=== PATIENT | male | born 1950 | race Caucasian/White ===

== ENCOUNTER 2019-08-23 14:05 | Emergency (ER) | payer OTHER ==
[2019-08-23] MEDS ORDERED: SODIUM CHLORIDE 0.9% 1,000 ML IV STA (14:35)
[2019-08-23] MEDS ORDERED: IPRATROPIUM-ALBUTEROL 3 ML NEB INHALATION STA (14:57)
[2019-08-23] MEDS ORDERED: KETOROLAC 30 MG/ML 1 ML VIAL IVP STA (14:57)
--- NOTE | 2019-08-23 15:02 | ED ---
Dizziness HPI - General Chief Complaint: Dizziness Stated Complaint: Dizziness Time Seen by Provider: 08/23/19 14:34 Source: patient, RN notes reviewed Mode of arrival: wheelchair Limitations: no limitations - History of Present Illness Initial Comments: This is a 68-year-old male who states he just recently moved to the area from [facility] who states he does not have any of his medications and he comes in complaining of dizziness right-sided headache from chronic neck pain. He states he also somewhat short of breath. He states he does use inhalers but does not have any of his medication. He denies any overt fevers chills nausea vomiting sweats no cough or phlegm production. No overt chest pain no palpitations no other modifying factors MD Complaint: dizziness, other - Related Data Previous Rx's Medication Instructions Recorded Albuterol Inhaler [Ventolin Hfa 2 puff INHALATION RT-QID PRN 30 08/23/19 Inhaler] Days #1 puff Tamsulosin HCl [Flomax] 0.4 mg PO DAILY #30 cap 08/23/19 amLODIPine [Norvasc] 5 mg PO DAILY #30 tab 08/23/19 Allergies Allergy/AdvReac Type Severity Reaction Status Date / Time trazodone Allergy Confusion Verified 08/23/19 14:18 Review of Systems ROS Statement: Those systems with pertinent positive or pertinent negative responses have been documented in the HPI. ROS Other: All systems not noted in ROS Statement are negative. Past Medical History Past Medical History: COPD, Hyperlipidemia, Hypertension, Myocardial Infarction ([place]) History of Any Multi-Drug Resistant Organisms: None Reported Past Surgical History: Orthopedic Surgery Past Psychological History: No Psychological Hx Reported Smoking Status: Current every day smoker Past Alcohol Use History: Daily Past Drug Use History: None Reported General Exam - General Exam Comments Initial Comments: This is a well-developed well-nourished awake alert oriented 3 male Limitations: no limitations General appearance: alert, in no apparent distress Head exam: Present: atraumatic, normocephalic, normal inspection Eye exam: Present: normal appearance, PERRL, EOMI. Absent: scleral icterus, conjunctival injection, periorbital swelling ENT exam: Present: normal exam, mucous membranes moist Neck exam: Present: normal inspection, tenderness (It is palpation on the), full ROM, other (No stridor JVD or bruits). Absent: meningismus, lymphadenopathy Respiratory exam: Present: wheezes, decreased breath sounds. Absent: respiratory distress, rales, rhonchi, stridor Cardiovascular Exam: Present: regular rate, normal rhythm, normal heart sounds. Absent: systolic murmur, diastolic murmur, rubs, gallop, clicks GI/Abdominal exam: Present: soft, normal bowel sounds. Absent: distended, tenderness, guarding, rebound, rigid Extremities exam: Present: full ROM, normal capillary refill, pedal edema (Trace edema). Absent: tenderness, joint swelling, calf tenderness Back exam: Present: normal inspection Neurological exam: Present: alert, oriented X3, CN II-XII intact Psychiatric exam: Present: normal affect, normal mood Skin exam: Present: warm, dry, intact, normal color. Absent: rash Course Vital Signs 08/23/19 08/23/19 08/23/19 14:13 14:46 15:17 Temperature 98.0 F 98.1 F Pulse Rate 74 61 65 Respiratory 18 18 16 Rate Blood Pressure 161/83 144/92 O2 Sat by Pulse 97 97 Oximetry 08/23/19 15:24 Temperature Pulse Rate 68 Respiratory 18 Rate Blood Pressure O2 Sat by Pulse Oximetry EKG Findings - EKG Results: EKG: interpreted by ERMD, sinus rhythm (Sinus rhythm a 64. 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 He feels back to normal. He will be discharged I did talk to him regarding his medications he is on amlodipine he believes 5 or 10 mg also albuterol inhaler and Flomax he will be given a one-month supply the medication. - Lab Data Result diagrams: 08/23/19 14:35 08/23/19 14:35 Lab Results 08/23/19 08/23/19 08/23/19 Range/Units 14:35 14:35 14:35 WBC 8.6 (3.8-10.6) k/uL RBC 5.43 (4.30-5.90) m/uL Hgb 16.6 (13.0-17.5) gm/dL Hct 49.3 (39.0-53.0) % MCV 90.7 (80.0-100.0) fL MCH 30.5 (25.0-35.0) pg MCHC 33.6 (31.0-37.0) g/dL RDW 13.7 (11.5-15.5) % Plt Count 282 (150-450) k/uL Neutrophils % 68 % Lymphocytes % 19 % Monocytes % 6 % Eosinophils % 4 % Basophils % 1 % Neutrophils # 5.8 (1.3-7.7) k/uL Lymphocytes # 1.7 (1.0-4.8) k/uL Monocytes # 0.5 (0-1.0) k/uL Eosinophils # 0.3 (0-0.7) k/uL Basophils # 0.0 (0-0.2) k/uL Sodium 139 (137-145) mmol/L Potassium 4.4 (3.5-5.1) mmol/L Chloride 105 (98-107) mmol/L Carbon Dioxide 28 (22-30) mmol/L Anion Gap 6 mmol/L BUN 15 (9-20) mg/dL Creatinine 0.76 (0.66-1.25) mg/dL Est GFR (CKD-EPI)AfAm >90 (>60 ml/min/1.73 sqM) Est GFR (CKD-EPI)NonAf >90 (>60 ml/min/1.73 sqM) Glucose 105 H (74-99) mg/dL Calcium 9.5 (8.4-10.2) mg/dL Magnesium 2.3 (1.6-2.3) mg/dL Total Bilirubin 0.4 (0.2-1.3) mg/dL AST 25 (17-59) U/L ALT 8 (4-49) U/L Alkaline Phosphatase 81 (38-126) U/L Troponin I <0.012 (0.000-0.034) ng/mL Total Protein 7.1 (6.3-8.2) g/dL Albumin 4.1 (3.5-5.0) g/dL - Radiology Data Radiology results: report reviewed (I did review the imaging and report no acute findings.), image reviewed Disposition Clinical Impression: COPD (chronic obstructive pulmonary disease), Medication refill, Hypertension Disposition: HOME SELF-CARE Condition: Good Instructions (If sedation given, give patient instructions): COPD (Chronic Obstructive Pulmonary Disease) (ED) Additional Instructions: Medication prescriptions sent to your preferred [facility] pharmacy Prescriptions: Tamsulosin HCl [Flomax] 0.4 mg PO DAILY #30 cap amLODIPine [Norvasc] 5 mg PO DAILY #30 tab Albuterol Inhaler [Ventolin Hfa Inhaler] 2 puff INHALATION RT-QID PRN 30 Days #1 puff PRN Reason: Dyspnea Is patient prescribed a controlled substance at d/c from ED?: No Referrals: Nonstaff,Physician [REFERRING] - 1-2 days
[2019-08-23 15:25] VITALS: RESP 18
[2019-08-23 15:30] LABS: Basophils % (A) 1 %; Eosinophils # (A) 0.3 k/uL (0-0.7); Eosinophils % (A) 4 %; HCT 49.3 % (39.0-53.0); HGB 16.6 gm/dL (13.0-17.5); Lymphocytes # (A) 1.7 k/uL (1.0-4.8); Lymphocytes % (A) 19 %; MCH 30.5 pg (25.0-35.0); MCHC 33.6 g/dL (31.0-37.0); MCV 90.7 fL (80.0-100.0); Mean Platelet Volume 7.1; Monocytes # (A) 0.5 k/uL (0-1.0); Monocytes % (A) 6 %; Neutrophils # (A) 5.8 k/uL (1.3-7.7); Neutrophils % (A) 68 %; Platelet Count 282 k/uL (150-450); RBC 5.43 m/uL (4.30-5.90); RDW 13.7 % (11.5-15.5); WBC 8.6 k/uL (3.8-10.6)
[2019-08-23 15:43] LABS: ALT 8 U/L (4-49); AST 25 U/L (17-59); African American GFR (CKD) >90 (>60 ml/min/1.73 sqM); Albumin 4.1 g/dL (3.5-5.0); Alkaline Phosphatase 81 U/L (38-126); Anion Gap 6 mmol/L; Blood Urea Nitrogen 15 mg/dL (9-20); Calcium 9.5 mg/dL (8.4-10.2); Carbon Dioxide 28 mmol/L (22-30); Chloride 105 mmol/L (98-107); Glucose 105 mg/dL (74-99); Magnesium 2.3 mg/dL (1.6-2.3); Non-African American GFR(CKD) >90 (>60 ml/min/1.73 sqM); Potassium 4.4 mmol/L (3.5-5.1); Sodium 139 mmol/L (137-145); Total Bilirubin 0.4 mg/dL (0.2-1.3); Total Protein 7.1 g/dL (6.3-8.2)
--- NOTE | 2019-08-23 15:45 | XR ---
EXAMINATION TYPE: XR chest 2V DATE OF EXAM: 08/23/2019 COMPARISON: None INDICATION: Dizziness TECHNIQUE: Frontal and lateral views of the chest are obtained. FINDINGS: The heart size is normal. The pulmonary vasculature is normal. The lungs are clear. IMPRESSION: 1. No acute pulmonary process.
[2019-08-23 16:42] VITALS: BP 150/74; PULSE 70; TEMP 98
== END 2019-08-23 16:32 | disposition home or self-care (01) ==
LOC: EC 14:05
DX: I10 Essential (primary) hypertension (principal); J44.9 Chronic obstructive pulmonary disease, unspecified; Z76.0 Encounter for issue of repeat prescription; I25.2 Old myocardial infarction; F17.200 Nicotine dependence, unspecified, uncomplicated; Z88.8 Allergy status to other drugs, medicaments and biological substances
CPT/HCPCS: 36415; 94640; 93005; 80053; 83735; 84484; 85025; 71046; 99284; 96374; 96361; J1885

== ENCOUNTER 2019-11-24 12:17 | Emergency (ER) | payer OTHER ==
[2019-11-24 13:14] LABS: Appearance,Urine Clear (Clear); Bilirubin,Urine Negative (Negative); Blood,Urine Negative (Negative); Color,Urine Colorless; Glucose,Urine (UA) Negative (Negative); Ketones,Urine Negative (Negative); Leukocyte Esterase,Urine Negative (Negative); Nitrite,Urine Negative (Negative); PH, Urine 5.5 (5.0-8.0); Protein,Urine Negative (Negative); Specific Gravity,Urine 1.002 (1.001-1.035); Urobilinogen,Urine <2.0 mg/dL (<2.0)
[2019-11-24] MEDS ORDERED: amLODIPine 5 MG TAB PO STA (13:39)
[2019-11-24 13:46] VITALS: RESP 18
[2019-11-24 13:46] LABS: Amphetamine Screen,Urine Not Detected (NotDetected); Barbiturate Screen,Urine Not Detected (NotDetected); Benzodiazepines Screen,Urine Not Detected (NotDetected); Cocaine Screen,Urine Not Detected (NotDetected); Methadone Screen, Urine Not Detected (NotDetected); Opiate Screen,Urine Not Detected (NotDetected); Oxycodone Screen, Urine Not Detected (NotDetected); Phencyclidine Screen,Urine Not Detected (NotDetected); Tricyclic Antidepressant,Urine Not Detected (NotDetected); Urn Cannabinoid Scrn Not Detected (NotDetected)
--- NOTE | 2019-11-24 14:17 | ED ---
Psych HPI - General Source: patient Mode of arrival: wheelchair <Maira Mcguire - Last Filed: 11/24/19 14:15> <Victoriano Myrick - Last Filed: 11/24/19 16:27> - General Chief Complaint: Psychiatric Symptoms Stated Complaint: Suicidal Time Seen by Provider: 11/24/19 12:31 - History of Present Illness Initial Comments: 69yo male presenting to the ER today for cc for suicidal ideation. Patient states that he wants to jump in front of her for itching. Denies attempted suicide. Patient states he did have a few "big beers today. Patient denies any homicide patient denies additional complaints he appears well in good spirits on arrival cooperative. Patient denies any recent fever, chills, shortness of breath, chest pain, back pain, abdominal pain, nausea or vomiting, numbness or tingling, dysuria or hematuria, constipation or diarrhea, headaches or visual changes, or any other complaints.. (Maira Mcguire) - Related Data Previous Rx's Medication Instructions Recorded Albuterol Inhaler [Ventolin Hfa 1 puff INHALATION RT-QID PRN #1 inh 11/24/19 Inhaler] Gabapentin 300 mg PO TID #21 cap 11/24/19 Lisinopril [Prinivil] 10 mg PO DAILY #7 tab 11/24/19 amLODIPine [Norvasc] 10 mg PO DAILY #7 tab 11/24/19 Allergies Allergy/AdvReac Type Severity Reaction Status Date / Time trazodone Allergy Confusion Verified 11/24/19 13:41 Review of Systems ROS Other: All systems not noted in ROS Statement are negative. <Maira Mcguire - Last Filed: 11/24/19 14:15> ROS Other: All systems not noted in ROS Statement are negative. <Victoriano Myrick - Last Filed: 11/24/19 16:27> ROS Statement: Those systems with pertinent positive or pertinent negative responses have been documented in the HPI. Past Medical History Past Medical History: COPD, CVA/TIA, Hyperlipidemia, Hypertension, Myocardial Infarction ([place]) History of Any Multi-Drug Resistant Organisms: None Reported Past Surgical History: Orthopedic Surgery Additional Past Surgical History / Comment(s): lt shoulder Past Psychological History: No Psychological Hx Reported Smoking Status: Current every day smoker Past Alcohol Use History: Daily Past Drug Use History: None Reported <Maira Mcguire Rabia - Last Filed: 11/24/19 14:15> General Exam Limitations: no limitations <Maira Mcguire Rabia - Last Filed: 11/24/19 14:15> - General Exam Comments Initial Comments: General: The patient is awake and alert, in no distress Eye: Pupils are equal, round and reactive to light, extra-ocular movements are intact. No nystagmus. There is normal conjunctiva bilaterally. No signs of icterus. Ears, nose, mouth and throat: There are moist mucous membranes and no oral lesions. Neck: The neck is supple, there is no tenderness or JVD. Cardiovascular: There is a regular rate and rhythm. No murmur, rub or gallop is appreciated. Respiratory: Lungs are clear to auscultation, respirations are non-labored, breath sounds are equal. No wheezes, stridor, rales, or rhonchi. Gastrointestinal: Soft, non-distended, non-tender abdomen without masses or organomegaly noted. There is no rebound or guarding present. Musculoskeletal: Normal ROM, no tenderness. Strength 5/5. Sensation intact. Pulses equal bilaterally 2+. Neurological: A&O x 3. CN II-XII intact grossly, There are no obvious motor or sensory deficits. Coordination appears grossly intact. Speech is normal. Skin: Skin is warm and dry and no rashes. Psychiatric: Cooperative. (Maira Mcguire) Course Vital Signs 11/24/19 11/24/19 11/24/19 12:26 13:45 15:40 Temperature 97.7 F Pulse Rate 62 62 64 Respiratory 20 18 18 Rate Blood Pressure 196/91 162/86 171/82 O2 Sat by Pulse 99 97 96 Oximetry Medical Decision Making <ShaylaAliciaMaira L - Last Filed: 11/24/19 14:15> <Victoriano Myrick - Last Filed: 11/24/19 16:27> - Medical Decision Making 69yo presenting for suicidal ideation. BP elevated, out of medications 5mg amlodipine. Patient sober at 1435 pt case signed out to Dr. Myrick at shift change. Pending EPS evaluatin. (Maira Mcguire) Patient had presented for evaluation of suicidal ideation, intoxication. Patient was medically cleared after sobriety and evaluated by EPS, patient is no longer suicidal. He is willing to sign a safety plan. He is given outpatient referral to [facility]. He is requesting that we refill his medications which she's been unable to get patient to the [place] [facility]. He is currently on albuterol, lisinopril, gabapentin and Norvasc. He is given a one-week supply of these medications. (Victoriano Myrick) - Lab Data Lab Results 11/24/19 Range/Units 12:41 Urine Color Colorless Urine Appearance Clear (Clear) Urine pH 5.5 (5.0-8.0) Ur Specific [place] 1.002 (1.001-1.035) Urine Protein Negative (Negative) Urine Glucose (UA) Negative (Negative) Urine Ketones Negative (Negative) Urine Blood Negative (Negative) Urine Nitrite Negative (Negative) Urine Bilirubin Negative (Negative) Urine Urobilinogen <2.0 (<2.0) mg/dL Ur Leukocyte Esterase Negative (Negative) Urine Opiates Screen Not Detected (NotDetected) Ur Oxycodone Screen Not Detected (NotDetected) Urine Methadone Screen Not Detected (NotDetected) Ur Propoxyphene Screen Not Detected (NotDetected) Ur Barbiturates Screen Not Detected (NotDetected) U Tricyclic Antidepress Not Detected (NotDetected) Ur Phencyclidine Scrn Not Detected (NotDetected) Ur Amphetamines Screen Not Detected (NotDetected) U Methamphetamines Scrn Not Detected (NotDetected) U Benzodiazepines Scrn Not Detected (NotDetected) Urine Cocaine Screen Not Detected (NotDetected) U Marijuana (THC) Screen Not Detected (NotDetected) Disposition <Maira Mcguire - Last Filed: 11/24/19 14:15> Is patient prescribed a controlled substance at d/c from ED?: No Time of Disposition: 16:25 <Victoriano Myrick - Last Filed: 11/24/19 16:27> Clinical Impression: Depression, Hypertension Disposition: HOME SELF-CARE Condition: Good Instructions (If sedation given, give patient instructions): Depression (ED), Hypertension (ED) Additional Instructions: [facility] Prescriptions: Gabapentin 300 mg PO TID #21 cap amLODIPine [Norvasc] 10 mg PO DAILY #7 tab Lisinopril [Prinivil] 10 mg PO DAILY #7 tab Albuterol Inhaler [Ventolin Hfa Inhaler] 1 puff INHALATION RT-QID PRN #1 inh PRN Reason: Shortness Of Breath Or Wheezing Referrals: None,Stated [Primary Care Provider] - 1-2 days Olga Doherty MD [REFERRING] - 1-2 days
[2019-11-24 16:38] VITALS: BP 171/81; PULSE 61; TEMP 98.4
== END 2019-11-24 16:37 | disposition home or self-care (01) ==
LOC: EC 12:17
DX: F32.9 Major depressive disorder, single episode, unspecified (principal); I10 Essential (primary) hypertension; R45.851 Suicidal ideations; F17.200 Nicotine dependence, unspecified, uncomplicated; Z88.8 Allergy status to other drugs, medicaments and biological substances
CPT/HCPCS: 80306; 81003; 82075; 99285